=== PATIENT | male | born 1970 | race Caucasian/White ===

== ENCOUNTER 2018-11-29 02:45 | Emergency (ER) | payer BC, OTHER ==
[2018-11-29] MEDS ORDERED: Lidocaine 1% (PF) 30 ML VIAL ONE (02:57)
[2018-11-29] MEDS ORDERED: Lidocaine 4% Cream 5 GM TUBE w/ Tegaderm ONE (02:57)
[2018-11-29] MEDS ORDERED: Bacitracin Zinc 1 Packet ONE (03:13)
== END 2018-11-29 03:26 | disposition home or self-care (01) ==
LOC: NAV ERS 02:45
DX: S61.217A Laceration without foreign body of left little finger without damage to nail, initial encounter (principal); I10 Essential (primary) hypertension; Z79.899 Other long term (current) drug therapy; W26.8XXA Contact with other sharp object(s), not elsewhere classified, initial encounter
CPT/HCPCS: 12002; J2001

== ENCOUNTER 2024-09-11 18:40 | Emergency (ER) | payer BC, SELFPAY ==
[2024-09-11 19:04] LABS: #Basophils 0.1 thou/uL (0.0-0.2); #Eosinophils 0.2 thou/uL (0.0-0.7); #Lymphocytes 1.8 thou/uL (1.20-3.40); #Monocytes 0.3 thou/uL (0.11-0.59); #Neutrophils 2.8 thou/uL (1.40-6.50); %Basophils 2.5 % (0.0-1.0); %Lymphocytes 34.4 % (21.0-51.0); %Monocytes 6.5 % (0.0-10.0); %Neutrophils 52.7 % (42.0-75.0); Hematocrit 46.5 % (42.0-52.0); Mean Corpuscular HGB CONC 34.3 g/dL (32.0-36.0); Mean Corpuscular Hemoglobin 32.3 pg (27.0-31.0); Mean Platelet Volume 7.3 fL (7.4-10.4); Platelet Count 270 10x3/uL (130-400); RBC Distribution Width 10.3 % (11.5-14.5); Red Blood Cell (RBC) Count 4.95 mill/uL (4.70-6.10); White Blood Cell (WBC) Count 5.2 10x3/uL (4.8-10.8)
[2024-09-11] MEDS ORDERED: Metoprolol Tartrate 5 MG (5 mL) VIAL ONE (19:12)
[2024-09-11 19:25] LABS: ALT (SGPT) 16 U/L (8-55); AST (SGOT) 25 U/L (5-34); Albumin 3.7 g/dL (3.5-5.0); Alkaline Phosphatase 58 U/L (40-110); Anion Gap 15 mmol/L (10-20); BUN (Urea Nitrogen) 8 mg/dL (8.4-25.7); Calc. Creatinine Clearance 0 mL/min (70-130); Calcium 8.5 mg/dL (7.8-10.44); Carbon Dioxide 23 mmol/L (22-29); Chloride 102 mmol/L (98-107); Estimated GFR 103; Globulin 4.2 g/dL (2.4-3.5); Glucose 258 mg/dL (70-105); Magnesium 1.9 mg/dL (1.6-2.6); Potassium 3.7 mmol/L (3.5-5.1); Protein, Total 7.9 g/dL (6.0-8.3); Sodium 136 mmol/L (136-145)
[2024-09-11 19:32] LABS: Troponin I Less than 0.010 ng/mL (< 0.028)
== END 2024-09-11 20:28 | disposition home or self-care (01) ==
LOC: NAV ERS 18:40
DX: I49.3 Ventricular premature depolarization (principal); E11.65 Type 2 diabetes mellitus with hyperglycemia; I10 Essential (primary) hypertension; Z79.899 Other long term (current) drug therapy
CPT/HCPCS: 71045; 80053; 83735; 83880; 84484; 85025; 93005; 94760; 96374